=== PATIENT | male | born 2000 | race Hispanic/Latino ===

== ENCOUNTER 2018-06-15 18:43 | Emergency (ER) | payer OTHER ==
[~2018-06-15] VITALS: Ht 167.6 cm; Wt 88.6 kg
[2018-06-15 20:04] LABS: INFLUENZA A AMPLIFICATION NEGATIVE (NEGATIVE); INFLUENZA B AMPLIFICATION NEGATIVE (NEGATIVE)
[2018-06-15] MEDS ORDERED: PRED20TA PO (21:00)
[2018-06-15] MEDS ORDERED: AUGM500T34 PO (21:00)
[2018-06-15 21:06] VITALS: BP 111/62
--- NOTE | 2018-06-16 08:18 | REP ---
Chest x-ray: Two views. History: Cough . Comparison study: No comparison . Findings: The lungs are well inflated and free of infiltrate. The pleural angles are sharp. The heart size is normal. Pulmonary vasculature is not increased. No significant bony abnormality is seen. Impression: Negative chest x-ray. Electronically Signed by Elijah Lyon MD 06/16/2018 08:11 A
== END 2018-06-15 21:15 | disposition home or self-care (01) ==
LOC: M ED 18:43
DX: J02.9 Acute pharyngitis, unspecified (principal)

== ENCOUNTER 2020-10-05 22:32 | Emergency (ER) | payer OTHER ==
[~2020-10-05] VITALS: Ht 170.2 cm; Wt 111.4 kg
[2020-10-05 22:32] VITALS: BP 134/79
[~2020-10-05 22:32] MED LIST: AUGM500T34 PO; PRED20TA PO
--- NOTE | 2020-10-05 23:42 | REPVR ---
PROCEDURE INFORMATION: Exam: XR Right Wrist Exam date and time: 10/05/2020 10:47 PM Age: 20 years old Clinical indication: Other: Injury TECHNIQUE: Imaging protocol: XR Right wrist. Views: 3 or more views. COMPARISON: No relevant prior studies available. FINDINGS: Bones/joints: Normal. Soft tissues: Normal. IMPRESSION: Negative right wrist. Electronically signed by: Cruz Abrams On 10/05/2020 23:42:12 PM
== END 2020-10-06 01:22 | disposition left against medical advice (07) ==
LOC: M ED 22:32
DX: Z53.21 Procedure and treatment not carried out due to patient leaving prior to being seen by health care provider (principal)

== ENCOUNTER 2020-10-06 17:20 | Emergency (ER) | payer MEDICAID, OTHER ==
[~2020-10-06] VITALS: Ht 167.6 cm; Wt 111.2 kg
[2020-10-06 18:57] VITALS: BP 138/82
== END 2020-10-06 19:04 | disposition home or self-care (01) ==
LOC: M ED 17:20
DX: S63.91XA Sprain of unspecified part of right wrist and hand, initial encounter (principal); W19.XXXA Unspecified fall, initial encounter; Y92.9 Unspecified place or not applicable; Y93.67 Activity, basketball; Y99.9 Unspecified external cause status